=== PATIENT | female | born 1970 | race Caucasian/White ===

== ENCOUNTER 2018-10-12 20:53 | Observation (INO) | payer BC ==
[2018-10-12 21:50] LABS: ABSOLUTE EOSINOPHILS # (AUTO) 0.1 10^3/uL (0.0-0.6); ABSOLUTE LYMPHOCYTES (AUTO) 1.8 10^3/uL (0.5-4.7); ABSOLUTE MONOCYTES (AUTO) 0.6 10^3/uL (0.1-1.4); ABSOLUTE NEUT (AUTO) 7.7 10^3/uL (1.7-8.2); BASOPHILS % (AUTO) 0.3 % (0-2); EOSINOPHILS % (AUTO) 0.5 % (0-6); HEMATOCRIT 41.5 % (36.0-47.0); HEMOGLOBIN 14.4 g/dL (12.0-15.5); LYMPHOCYTES % (AUTO) 17.4 % (13-45); MEAN CORPUSCULAR HEMOGLOBIN 33.8 pg (27.0-33.4); MEAN CORPUSCULAR HGB CONC 34.6 g/dL (32.0-36.0); MEAN CORPUSCULAR VOLUME 98 fl (80-97); MONOCYTES % (AUTO) 6.2 % (3-13); PLATELET COUNT 274 10^3/uL (150-450); RED BLOOD COUNT 4.24 10^6/uL (3.72-5.28); RED CELL DISTRIBUTION WIDTH 14.6 % (11.5-14.0); SEGMENTED NEUTROPHILS % (AUTO) 75.6 % (42-78); TOTAL CELLS COUNTED % (AUTO) 100 %; WHITE BLOOD COUNT 10.2 10^3/uL (4.0-10.5)
[2018-10-12 21:51] LABS: APPEARANCE,URINE CLEAR; BILIRUBIN,URINE NEGATIVE (NEGATIVE); COLOR,URINE YELLOW; GLUCOSE, URINE NEGATIVE (NEGATIVE); KETONES,URINE TRACE mg/dL (NEGATIVE); LEUKOCYTE ESTERASE,URINE NEGATIVE (NEGATIVE); NITRITE,URINE NEGATIVE (NEGATIVE); PROTEIN,URINE NEGATIVE (NEGATIVE); URINE SPECIFIC GRAVITY 1.009; UROBILINOGEN,URINE NEGATIVE mg/dL (<2.0)
[2018-10-12 22:06] LABS: ALANINE AMINOTRANSFERASE 25 U/L (9-52); ALBUMIN 4.3 g/dL (3.5-5.0); ALKALINE PHOSPHATASE 108 U/L (38-126); ANION GAP 7 (5-19); ASPARTATE AMINO TRANSFERASE 19 U/L (14-36); BILIRUBIN,DIRECT 0.1 mg/dL (0.0-0.4); BILIRUBIN,TOTAL 0.5 mg/dL (0.2-1.3); BLOOD UREA NITROGEN 10 mg/dL (7-20); CALCIUM 9.5 mg/dL (8.4-10.2); CARBON DIOXIDE 27 mmol/L (22-30); CHLORIDE 107 mmol/L (98-107); GLUCOSE 89 mg/dL (75-110); POTASSIUM 4.3 mmol/L (3.6-5.0); SODIUM 140.7 mmol/L (137-145); TOTAL PROTEIN 7.1 g/dL (6.3-8.2)
[2018-10-12] MEDS ORDERED: KETOROLAC TROMETHAMINE INJ/PF 30 MG/1 ML SDV IV ONE (23:23)
[2018-10-12] MEDS ORDERED: MORPHINE SULFATE 10 MG/ML INJ IV PRN (23:23)
[2018-10-12] MEDS ORDERED: RINGERS SOLUTION,LACTATED 1,000 ML IV ONE (23:24)
--- NOTE | 2018-10-12 23:26 | ER Document Report ---
ED General - General Chief Complaint: Abdominal Pain Stated Complaint: FLANK PAIN Time Seen by Provider: 10/12/18 21:14 Notes: Patient is a 47-year-old female without chronic medical problems, no prior abdominal surgical history, presents with 36 hours of right lower quadrant abdominal pain. States the pains are gradually, has gotten progressively worse since onset. Describes the pain as a dull, throbbing, aching pain to the right lower abdomen. Worsened by movement, coughing or touching the area. Nothing improves the pain. Notes associated nausea but no vomiting or diarrhea. No fever or constitutional symptoms. Has not seen her general physician regarding today's concerns. Denies any history of similar symptoms in the past. TRAVEL OUTSIDE OF THE [place] IN LAST 30 DAYS: No - Related Data Allergies/Adverse Reactions: Iodinated Contrast- Oral and IV Dye Adverse Reaction (Severe, Verified 10/12/18 23:38) Anaphylaxis Past Medical History - General Information source: Patient - Social History Smoking Status: Current Every Day Smoker Frequency of alcohol use: Occasional Drug Abuse: None Lives with: Family Family History: Reviewed & Not Pertinent Patient has suicidal ideation: No Patient has homicidal ideation: No Renal/ Medical History: Denies: Hx Peritoneal Dialysis Past Surgical History: Reports: Hx Section - x2 Review of Systems - Review of Systems Notes: Constitutional: Negative for fever. HENT: Negative for sore throat. Eyes: Negative for visual changes. Cardiovascular: Negative for chest pain. Respiratory: Negative for shortness of breath. Gastrointestinal: Positive for right lower abdominal pain Genitourinary: Negative for dysuria. Musculoskeletal: Negative for back pain. Skin: Negative for rash. Neurological: Negative for headaches, weakness or numbness. 10 point ROS negative except as marked above and in HPI. Physical Exam - Vital signs Vitals: Temp Pulse Resp BP Pulse Ox 98.0 F 90 16 128/82 H 99 10/12/18 20:57 10/12/18 20:57 10/12/18 20:57 10/12/18 20:57 10/12/18 20:57 Interpretation: Normal Notes: PHYSICAL EXAMINATION: GENERAL: Appears moderately uncomfortable but in no acute distress HEAD: Atraumatic, normocephalic. EYES: Pupils equal round and reactive to light, extraocular movements intact, sclera anicteric, conjunctiva are normal. ENT: nares patent, oropharynx clear without exudates. Moist mucous membranes. NECK: Normal range of motion, supple without lymphadenopathy LUNGS: Breath sounds clear to auscultation bilaterally and equal. No wheezes rales or rhonchi. HEART: Regular rate and rhythm without murmurs ABDOMEN: Soft, focal tenderness to the right lower quadrant with associated rebound no guarding. Otherwise no localized abdominal tenderness. Normoactive bowel sounds. EXTREMITIES: Normal range of motion, no pitting or edema. No cyanosis. NEUROLOGICAL: No focal neurological deficits. Moves all extremities spontaneously and on command. PSYCH: Normal mood, normal affect. SKIN: Warm, Dry, normal turgor, no rashes or lesions noted. Course - Re-evaluation Re-evalutation: 10/12/18 23:25 Patient presents with right lower quadrant abdominal pain has become progressively worse over the past 36 hours. Has focal tenderness right lower quadrant with rebound although no guarding. Labs unremarkable. Patient is unable to receive oral or IV contrast dye second. Primary concern is for possible acute appendicitis. Will proceed with CT down pelvis to evaluate although this has the high potential being limited exam given patient's relatively low BMI and inability to receive contrast. 10/13/18 01:08 CT the abdomen pelvis notes right-sided diverticulitis although does not comment on appendix. I did contact the surgeon personal support worker Dr. Casanova who evaluated the patient, requests repeat CT with oral barium. This is pending. 10/13/18 03:28 CT with oral contrast does confirm normal appendix with right-sided diverticulitis. I discussed with Dr. Casanova, recommends admission. I have discussed Dr. Reid who has accepted the patient for admission. IV ciprofloxacin and metronidazole have been initiated. - Vital Signs Vital signs: Temp Pulse Resp BP Pulse Ox 98.0 F 92 18 128/82 H 99 10/13/18 00:56 10/13/18 00:56 10/13/18 00:56 10/12/18 20:57 10/13/18 00:56 - Laboratory Result Diagrams: 10/12/18 21:30 10/12/18 21:30 Laboratory results interpreted by me: 10/12/18 10/12/18 21:30 21:30 MCV 98 H MCH 33.8 H RDW 14.6 H Urine Ketones TRACE H - Diagnostic Test Radiology reviewed: Reports reviewed Discharge - Discharge Clinical Impression: Diverticulitis, Right sided abdominal pain Condition: Fair Disposition: ADMITTED OBSERVATION Admitting Provider: Hospitalist Unit Admitted: Medical Floor
--- NOTE | 2018-10-12 23:53 | RADIOLOGY REPORT (SQ) ---
EXAM DESCRIPTION: CT ABDOMEN PELVIS WITHOUT IV CONTRAST COMPLETED DATE/TME: 10/12/2018 23:23 CLINICAL HISTORY: 47 years, Female, rlq pain, eval appy, cant get contrast This exam was performed according to our departmental dose-optimization program which includes automated exposure control, adjustment of the mA and/or kVp according to patient size and/or use of iterative reconstruction technique where applicable. FINDINGS: Visualized lung bases are within normal limits. Liver, spleen, pancreas, gallbladder, adrenal glands and kidneys are within normal limits. No hydronephrosis or biliary dilatation. There is no renal, ureteral or bladder calculus. No dilated loops of bowel to suggest obstruction. Mild diffuse colonic diverticulosis. Mild inflammation involving the right colon suspicious for diverticulitis. No free fluid or free air. The bladder is unremarkable. The gynecologic organs are unremarkable. No abdominal or pelvic lymphadenopathy. Abdominal aorta mildly calcified without aneurysm. IMPRESSION: Mild right-sided colonic diverticulitis suspected. No abscess. No free air.
--- NOTE | 2018-10-13 00:42 | PDOC CONSULTATION ---
Consultation Consult Date: 10/13/18 Consult reason:: abdominal pains History of Present Illness History of Present Illness: JOSE MARIA SHAH is a 47 year old female who suddenly c/o RLQ pains noon time 10/12/18. Pains initially on and off but persistent as soon as she got into ED [facility]. No nausea/vomiting, fever nor chills, diarrhea nor constipation. No dysuria. no vaginal discharge. Still have her menses. C/O right lower back pains about a week ago. Diagnosed herself with sciatica past 2 years. Past Medical History Endocrine Medical History: Reports: Hypothyroidism - takes synthroid for past 13 years. Past Surgical History Past Surgical History: Reports: Section - x2 Social History Smoking Status: Current Every Day Smoker Family History Parental Family History Reviewed: Yes Children Family History Reviewed: No Sibling(s) Family History Reviewed.: No Medication/Allergy Allergies/Adverse Reactions: Iodinated Contrast- Oral and IV Dye Adverse Reaction (Severe, Verified 10/12/18 23:38) Anaphylaxis Review of Systems Constitutional: PRESENT: as per HPI Cardiovascular: PRESENT: other - no chest pains/cough Gastrointestinal: PRESENT: abdominal pain Genitourinary: PRESENT: other - no dysuria Musculoskeletal: PRESENT: back pain Physical Exam Vital Signs: Temp Pulse Resp BP Pulse Ox 98.0 F 90 16 128/82 H 99 10/12/18 20:57 10/12/18 20:57 10/12/18 20:57 10/12/18 20:57 10/12/18 20:57 Intake & Output 10/11/18 10/12/18 10/13/18 06:59 06:59 06:59 Weight 55.3 kg General appearance: PRESENT: mild distress Head exam: PRESENT: atraumatic Eye exam: PRESENT: conjunctiva pink Mouth exam: PRESENT: moist Neck exam: PRESENT: full ROM Respiratory exam: PRESENT: clear to auscultation marlon Cardiovascular exam: PRESENT: RRR Pulses: PRESENT: normal radial pulses Vascular exam: PRESENT: normal capillary refill GI/Abdominal exam: PRESENT: soft, tenderness - RLQ with rebound Rectal exam: PRESENT: deferred Extremities exam: PRESENT: full ROM Musculoskeletal exam: PRESENT: ambulatory Neurological exam: PRESENT: alert, oriented to person, oriented to place, oriented to time, oriented to situation Psychiatric exam: PRESENT: appropriate affect Skin exam: PRESENT: normal color, warm Results Laboratory Results: 10/12/18 21:30 10/12/18 21:30 10/12/18 10/12/18 10/12/18 21:30 21:30 21:30 WBC 10.2 RBC 4.24 Hgb 14.4 Hct 41.5 MCV 98 H MCH 33.8 H MCHC 34.6 RDW 14.6 H Plt Count 274 Seg Neutrophils % 75.6 Lymphocytes % 17.4 Monocytes % 6.2 Eosinophils % 0.5 Basophils % 0.3 Absolute Neutrophils 7.7 Absolute Lymphocytes 1.8 Absolute Monocytes 0.6 Absolute Eosinophils 0.1 Absolute Basophils 0.0 Sodium 140.7 Potassium 4.3 Chloride 107 Carbon Dioxide 27 Anion Gap 7 BUN 10 Creatinine 0.81 Est GFR ( Amer) > 60 Est GFR (Non-Af Amer) > 60 Glucose 89 Calcium 9.5 Total Bilirubin 0.5 AST 19 ALT 25 Alkaline Phosphatase 108 Total Protein 7.1 Albumin 4.3 Serum HCG, Qual NEGATIVE Urine Color Urine Appearance Urine pH Ur Specific [place] Urine Protein Urine Glucose (UA) Urine Ketones Urine Blood Urine Nitrite Ur Leukocyte Esterase Urine WBC (Auto) Urine RBC (Auto) 10/12/18 21:30 WBC RBC Hgb Hct MCV MCH MCHC RDW Plt Count Seg Neutrophils % Lymphocytes % Monocytes % Eosinophils % Basophils % Absolute Neutrophils Absolute Lymphocytes Absolute Monocytes Absolute Eosinophils Absolute Basophils Sodium Potassium Chloride Carbon Dioxide Anion Gap BUN Creatinine Est GFR ( Amer) Est GFR (Non-Af Amer) Glucose Calcium Total Bilirubin AST ALT Alkaline Phosphatase Total Protein Albumin Serum HCG, Qual Urine Color YELLOW Urine Appearance CLEAR Urine pH 6.0 Ur Specific [place] 1.009 Urine Protein NEGATIVE Urine Glucose (UA) NEGATIVE Urine Ketones TRACE H Urine Blood NEGATIVE Urine Nitrite NEGATIVE Ur Leukocyte Esterase NEGATIVE Urine WBC (Auto) 1 Urine RBC (Auto) 0 Impressions: Abdomen/Pelvis CT 10/12/18 23:23 IMPRESSION: Mild right-sided colonic diverticulitis suspected. No abscess. No free air. Assessment & Plan - Diagnosis (1) Right sided colitis Is this a current diagnosis for this admission?: Yes - Time Time Spent: 30 to 50 Minutes - Plan Summary Plan Summary: Repeat CT scan with po contrast to better visualize appendix Hold antibiotics tonight OK to give pain medicine Will follow post repeat CT scan
--- NOTE | 2018-10-13 02:43 | RADIOLOGY REPORT (SQ) ---
EXAM DESCRIPTION: CT ABDOMEN PELVIS WITHOUT IV CONTRAST COMPLETED DATE/TME: 10/13/2018 00:00 CLINICAL HISTORY: 47 years Female, RLQ PAIN, EVAL APPY Comparison: One day prior. Technique: No IV contrast. Oral contrast only. Coronal and sagittal reformat. This exam was performed according to our departmental dose-optimization program, which includes automated exposure control, adjustment of the mA and/or kV according to patient size and/or use of iterative reconstruction technique.[facility]: Dose Right [facility]: CareDose [facility]: Dose Right [facility]: Teradose 4D [facility]: Moogsoft LIMITATIONS: None Findings: Mild fat inflammation associated with right colonic diverticulosis. No drainable fluid collection. No abscess. No ascites. Normal appendix. No pneumoperitoneum. No bowel obstruction. No hydronephrosis or hydroureter. No renal/ureteral stone. No evidence of abdominal aortic aneurysm. Unenhanced lower thorax, abdominopelvic structures, and musculoskeleton appear otherwise grossly unremarkable. Impression: No significant change. Mild diverticulitis. Normal appendix.
[2018-10-13] MEDS ORDERED: METRONIDAZOLE 500 MG/NS RTU 500 MG/100 ML RTUPB IV ONE (02:49)
[2018-10-13] MEDS ORDERED: CIPROFLOXACIN 400 MG/D5W RTU 400 MG/200 ML RTUPB IV ONE (02:51)
[2018-10-13] MEDS ORDERED: IPRATROPIUM/ALBUTEROL 0.5-2.5 MG/3 ML AMPUL NEB PRN (02:54)
[2018-10-13] MEDS ORDERED: MAG HYDROX/AL HYDROX/SIMETH SUSP 30 ML UDCUP PO PRN (02:54)
[2018-10-13] MEDS ORDERED: ONDANSETRON HCL INJ/PF 4 MG/2 ML SDV IV PRN (02:54)
[2018-10-13] MEDS ORDERED: ACETAMINOPHEN 325 MG TABLET PO PRN (02:56)
[2018-10-13] MEDS ORDERED: MORPHINE SULFATE 10 MG/ML INJ IV PRN (02:56)
[2018-10-13] MEDS ORDERED: KETOROLAC TROMETHAMINE INJ/PF 30 MG/1 ML SDV IV PRN (02:56)
[2018-10-13] MEDS: NORMAL SALINE 1000 ML 1,000 ML IV PRN ×4 (03:25→21:10)
--- NOTE | 2018-10-13 05:33 | PDOC H&P ---
History of Present Illness Admission Date/PCP: 10/13/18 03:28 Patient complains of: Abdominal pain History of Present Illness: JOSE MARIA SHAH is a 47 year old female without significant past medical history who presents to the emergency room with 36 hours of intermittent 4 out of 5 right lower quadrant abdominal pain described as burning and poking worsened by deep breath. She denies nausea vomiting or diarrhea. She denies previous episode. In the emergency room she is found to have unremarkable labs but CT suggests cecal diverticulitis without abscess. She started on empiric antibiotics and referred to the hospitalist for admission. She denies recent antibiotic use and otherwise has felt well. Past Medical History Medical History: None Endocrine Medical History: Reports: Hypothyroidism - takes synthroid for past 13 years. Past Surgical History Past Surgical History: Reports: Section - x2 Social History Lives with: Family Smoking Status: Current Every Day Smoker Cigarettes Packs Per Day: 0.5 Frequency of Alcohol Use: Rare - Advance Directive Resuscitation Status: Full Code Family History Family History: Hypertension Parental Family History Reviewed: Yes Children Family History Reviewed: Yes Sibling(s) Family History Reviewed.: Yes Medication/Allergy Allergies/Adverse Reactions: Iodinated Contrast- Oral and IV Dye Adverse Reaction (Severe, Verified 10/12/18 23:38) Anaphylaxis Review of Systems Constitutional: ABSENT: chills, fever(s), headache(s), weight gain, weight loss Eyes: ABSENT: visual disturbances Ears: ABSENT: hearing changes Cardiovascular: ABSENT: chest pain, dyspnea on exertion, edema, orthropnea, palpitations Respiratory: ABSENT: cough, hemoptysis Gastrointestinal: ABSENT: abdominal pain, constipation, diarrhea, hematemesis, hematochezia, nausea, vomiting Genitourinary: ABSENT: dysuria, hematuria Musculoskeletal: ABSENT: joint swelling Integumentary: ABSENT: rash, wounds Neurological: ABSENT: abnormal gait, abnormal speech, confusion, dizziness, focal weakness, syncope Psychiatric: ABSENT: anxiety, depression, homidical ideation, suicidal ideation Endocrine: ABSENT: cold intolerance, heat intolerance, polydipsia, polyuria Hematologic/Lymphatic: ABSENT: easy bleeding, easy bruising Physical Exam Vital Signs: Temp Pulse Resp BP Pulse Ox 98.6 F 74 15 113/76 100 10/13/18 03:35 10/13/18 03:35 10/13/18 03:35 10/13/18 03:35 10/13/18 03:35 Intake & Output 10/11/18 10/12/18 10/13/18 11:59 11:59 11:59 Intake Total 1300 Balance 1300 Weight 55.3 kg General appearance: PRESENT: cooperative, mild distress, well-developed, well- nourished Head exam: PRESENT: atraumatic, normocephalic Eye exam: PRESENT: conjunctiva pink, EOMI, PERRLA. ABSENT: scleral icterus Ear exam: PRESENT: normal external ear exam Mouth exam: PRESENT: moist, tongue midline Neck exam: ABSENT: carotid bruit, JVD, lymphadenopathy, thyromegaly Respiratory exam: PRESENT: clear to auscultation marlon. ABSENT: rales, rhonchi, wheezes Cardiovascular exam: PRESENT: RRR. ABSENT: diastolic murmur, rubs, systolic murmur Pulses: PRESENT: normal dorsalis pedis pul Vascular exam: PRESENT: normal capillary refill GI/Abdominal exam: PRESENT: hyperactive bowel sounds, soft, tenderness - Right lower quadrant. ABSENT: distended, guarding, mass, organolmegaly, rebound Rectal exam: PRESENT: deferred Extremities exam: PRESENT: full ROM. ABSENT: calf tenderness, clubbing, pedal edema Neurological exam: PRESENT: alert, awake, oriented to person, oriented to place, oriented to time, oriented to situation, CN II-XII grossly intact. ABSENT: motor sensory deficit Psychiatric exam: PRESENT: appropriate affect, normal mood. ABSENT: homicidal ideation, suicidal ideation Skin exam: PRESENT: dry, intact, warm. ABSENT: cyanosis, rash Results Laboratory Results: 10/12/18 21:30 10/12/18 21:30 10/12/18 10/12/18 10/12/18 21:30 21:30 21:30 WBC 10.2 RBC 4.24 Hgb 14.4 Hct 41.5 MCV 98 H MCH 33.8 H MCHC 34.6 RDW 14.6 H Plt Count 274 Seg Neutrophils % 75.6 Lymphocytes % 17.4 Monocytes % 6.2 Eosinophils % 0.5 Basophils % 0.3 Absolute Neutrophils 7.7 Absolute Lymphocytes 1.8 Absolute Monocytes 0.6 Absolute Eosinophils 0.1 Absolute Basophils 0.0 Sodium 140.7 Potassium 4.3 Chloride 107 Carbon Dioxide 27 Anion Gap 7 BUN 10 Creatinine 0.81 Est GFR ( Amer) > 60 Est GFR (Non-Af Amer) > 60 Glucose 89 Calcium 9.5 Total Bilirubin 0.5 AST 19 ALT 25 Alkaline Phosphatase 108 Total Protein 7.1 Albumin 4.3 Serum HCG, Qual NEGATIVE Urine Color Urine Appearance Urine pH Ur Specific [place] Urine Protein Urine Glucose (UA) Urine Ketones Urine Blood Urine Nitrite Ur Leukocyte Esterase Urine WBC (Auto) Urine RBC (Auto) 10/12/18 21:30 WBC RBC Hgb Hct MCV MCH MCHC RDW Plt Count Seg Neutrophils % Lymphocytes % Monocytes % Eosinophils % Basophils % Absolute Neutrophils Absolute Lymphocytes Absolute Monocytes Absolute Eosinophils Absolute Basophils Sodium Potassium Chloride Carbon Dioxide Anion Gap BUN Creatinine Est GFR ( Amer) Est GFR (Non-Af Amer) Glucose Calcium Total Bilirubin AST ALT Alkaline Phosphatase Total Protein Albumin Serum HCG, Qual Urine Color YELLOW Urine Appearance CLEAR Urine pH 6.0 Ur Specific [place] 1.009 Urine Protein NEGATIVE Urine Glucose (UA) NEGATIVE Urine Ketones TRACE H Urine Blood NEGATIVE Urine Nitrite NEGATIVE Ur Leukocyte Esterase NEGATIVE Urine WBC (Auto) 1 Urine RBC (Auto) 0 Assessment & Plan - Diagnosis (1) Diverticulitis Is this a current diagnosis for this admission?: Yes Plan: Cecal diverticulitis without abscess or leukocytosis. She is placed on symptomatic management, empiric antibiotics. Follow-up CBC, blood culture and surgical consult (2) Right sided abdominal pain Is this a current diagnosis for this admission?: Yes Plan: Toradol and morphine as needed (3) Tobacco dependency Is this a current diagnosis for this admission?: Yes Plan: Tobacco Dependence patient received tobacco cessation counseling and offered nicotine replacement options - Time Time Spent: 30 to 50 Minutes - Inpatient Certification Medical Necessity: Need Close Monitoring Due to Risk of Patient Decompensation
[2018-10-13] MEDS: HEPARIN SOD (PORCINE) 5,000 UNIT/ML 1 ML SYRINGE SUBCUT SCH ×3 (06:15→22:00)
[2018-10-13] MEDS: METRONIDAZOLE 500 MG/NS RTU 500 MG/100 ML RTUPB IV SCH ×3 (09:47→21:09)
--- NOTE | 2018-10-13 10:16 | PDOC PROGRESS REPORT ---
Subjective Progress Note for:: 10/13/18 Subjective:: Feels better, wants to start a diet. Essentially no pain medicine; no fever. Reason For Visit: DIVERTICULITIS Physical Exam Vital Signs: Temp Pulse Resp BP Pulse Ox 98.0 F 61 18 106/67 99 10/13/18 08:09 10/13/18 09:09 10/13/18 09:09 10/13/18 08:09 10/13/18 09:09 Intake & Output 10/12/18 10/13/18 10/14/18 06:59 06:59 06:59 Intake Total 2012 Balance 2012 Weight 55.3 kg General appearance: PRESENT: no acute distress GI/Abdominal exam: PRESENT: other - Minimal tenderness right lower quadrant. No peritoneal signs no rigidity. Results Laboratory Results: 10/12/18 21:30 10/12/18 21:30 10/12/18 10/12/18 10/12/18 21:30 21:30 21:30 WBC 10.2 RBC 4.24 Hgb 14.4 Hct 41.5 MCV 98 H MCH 33.8 H MCHC 34.6 RDW 14.6 H Plt Count 274 Seg Neutrophils % 75.6 Lymphocytes % 17.4 Monocytes % 6.2 Eosinophils % 0.5 Basophils % 0.3 Absolute Neutrophils 7.7 Absolute Lymphocytes 1.8 Absolute Monocytes 0.6 Absolute Eosinophils 0.1 Absolute Basophils 0.0 Sodium 140.7 Potassium 4.3 Chloride 107 Carbon Dioxide 27 Anion Gap 7 BUN 10 Creatinine 0.81 Est GFR ( Amer) > 60 Est GFR (Non-Af Amer) > 60 Glucose 89 Calcium 9.5 Total Bilirubin 0.5 AST 19 ALT 25 Alkaline Phosphatase 108 Total Protein 7.1 Albumin 4.3 Serum HCG, Qual NEGATIVE Urine Color Urine Appearance Urine pH Ur Specific [place] Urine Protein Urine Glucose (UA) Urine Ketones Urine Blood Urine Nitrite Ur Leukocyte Esterase Urine WBC (Auto) Urine RBC (Auto) 10/12/18 21:30 WBC RBC Hgb Hct MCV MCH MCHC RDW Plt Count Seg Neutrophils % Lymphocytes % Monocytes % Eosinophils % Basophils % Absolute Neutrophils Absolute Lymphocytes Absolute Monocytes Absolute Eosinophils Absolute Basophils Sodium Potassium Chloride Carbon Dioxide Anion Gap BUN Creatinine Est GFR ( Amer) Est GFR (Non-Af Amer) Glucose Calcium Total Bilirubin AST ALT Alkaline Phosphatase Total Protein Albumin Serum HCG, Qual Urine Color YELLOW Urine Appearance CLEAR Urine pH 6.0 Ur Specific [place] 1.009 Urine Protein NEGATIVE Urine Glucose (UA) NEGATIVE Urine Ketones TRACE H Urine Blood NEGATIVE Urine Nitrite NEGATIVE Ur Leukocyte Esterase NEGATIVE Urine WBC (Auto) 1 Urine RBC (Auto) 0 Assessment & Plan - Diagnosis (1) Right sided abdominal pain Is this a current diagnosis for this admission?: Yes Plan: Impression: Clinically improved; minimal findings on CT scan which I reviewed this morning. The appendix is illuminated with oral contrast, so the likelihood of appendicitis is extremely low. The diverticuli are limited to 1 or 2 involving the cecum. Amount of pericecal inflammation is minimal; no fluid or phlegmon Recommendations: 1. Advance diet as tolerated 2. Given the minimal findings on CT scan, normal white count and absence of fever, I would be inclined to limit since duration of p.o. antibiotics. 3. Surgery will sign off at this time. Reconsult if necessary.
--- NOTE | 2018-10-13 15:21 | Progress Note ---
Provider Note Provider Note: patient admitted after midnight. please see H&P for full A&P spoke with patient at bedside. 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 advanced her diet to clears now. she wants to go home but still having pain. discussed about staying another 24-48hours and see how she does with her pain. discussed about causes of her pain- diverticulitis vs ?ovarian cysts. she did have CT abdo on admission - ONLY ORAL contrast- shows mild diverticulitis. i discussed about getting a TVUS to evaluate her ovaries- she agreeable. if TVUS shows neg findings and her pain persists- we can consider repeat CT abdo WITH IV contrast if her renal functions are appropriate. if her pain improves and she's able to tolerate a soft diet then she can possibly be discharged in AM c/w Cipro/flagyl for now until we have more information.
[2018-10-13] MEDS: CIPROFLOXACIN 400 MG/D5W RTU 400 MG/200 ML RTUPB IV SCH (17:33)
[2018-10-14] MEDS: METRONIDAZOLE 500 MG/NS RTU 500 MG/100 ML RTUPB IV SCH ×2 (03:24→08:38)
[2018-10-14] MEDS: CIPROFLOXACIN 400 MG/D5W RTU 400 MG/200 ML RTUPB IV SCH (05:24)
[2018-10-14 06:48] LABS: ABSOLUTE BASOPHILS # (AUTO) 0.1 10^3/uL (0.0-0.2); ABSOLUTE EOSINOPHILS # (AUTO) 0.1 10^3/uL (0.0-0.6); ABSOLUTE LYMPHOCYTES (AUTO) 1.9 10^3/uL (0.5-4.7); ABSOLUTE MONOCYTES (AUTO) 0.5 10^3/uL (0.1-1.4); ABSOLUTE NEUT (AUTO) 5.1 10^3/uL (1.7-8.2); BASOPHILS % (AUTO) 0.7 % (0-2); EOSINOPHILS % (AUTO) 0.8 % (0-6); HEMATOCRIT 34.1 % (36.0-47.0); LYMPHOCYTES % (AUTO) 25.6 % (13-45); MEAN CORPUSCULAR HEMOGLOBIN 33.5 pg (27.0-33.4); MEAN CORPUSCULAR HGB CONC 34.8 g/dL (32.0-36.0); MEAN CORPUSCULAR VOLUME 96 fl (80-97); MONOCYTES % (AUTO) 6.4 % (3-13); PLATELET COUNT 198 10^3/uL (150-450); RED BLOOD COUNT 3.55 10^6/uL (3.72-5.28); RED CELL DISTRIBUTION WIDTH 14.3 % (11.5-14.0); SEGMENTED NEUTROPHILS % (AUTO) 66.5 % (42-78); TOTAL CELLS COUNTED % (AUTO) 100 %; WHITE BLOOD COUNT 7.6 10^3/uL (4.0-10.5)
[2018-10-14 06:49] LABS: HEMOGLOBIN 11.9 g/dL (12.0-15.5)
[2018-10-14 07:12] LABS: ANION GAP 9 (5-19); BLOOD UREA NITROGEN 4 mg/dL (7-20); CALCIUM 8.4 mg/dL (8.4-10.2); CARBON DIOXIDE 22 mmol/L (22-30); CHLORIDE 109 mmol/L (98-107); GLUCOSE 115 mg/dL (75-110); SODIUM 139.8 mmol/L (137-145)
[2018-10-14] MEDS: HEPARIN SOD (PORCINE) 5,000 UNIT/ML 1 ML SYRINGE SUBCUT SCH (08:23)
--- NOTE | 2018-10-14 09:35 | Physician Advisory Note ---
Physician Advisor ProgressNote .: Pursuant to the plan for [facility], I have reviewed the medical record for this patient. Physician Advisor Statement: Status: BCNC pt w/PMH tobacco abuse only, in w/RLQ pain, cecal diverticulitis without excessive intra-abd inflammation, attg yesterday also concerned for potential of ov cyst. Improving w/in 24hrs w/IVF & abx, though still w/sufficient abd pain that attg recommended further eval w/US. Has been relatively low severity of illness/intensity of service. Approp'ly Obs. - If not able to go home today safely/acute new clinical issues that concern attg, please document explicitly. Thanks! CK
[2018-10-14 13:45] VITALS: BP 113/76
--- NOTE | 2018-10-14 17:09 | RADIOLOGY REPORT (SQ) ---
EXAM DESCRIPTION: U/S NON-OB PELVIS TV W/O DOP COMPLETED DATE/TIME: 10/14/2018 11:37 am REASON FOR STUDY: RIGHT LOWER Q PAIN COMPARISON: None. TECHNIQUE: Dynamic and static grayscale images acquired of the pelvis via transvaginal approach and recorded on PACS. Additional selected color Doppler and spectral images recorded. LIMITATIONS: None. FINDINGS: UTERUS: Contour normal. No mass. ENDOMETRIAL STRIPE: No focal or generalized thickening. No masses. CERVIX: No nabothian cysts. RIGHT OVARY AND DOPPLER: Normal size. 1.5 cm thick-walled hypoechoic lesion with internal echoes. N o worrisome masses. Normal arterial vascular flow without evidence for torsion. LEFT OVARY AND DOPPLER: Normal size. No worrisome masses. Normal arterial vascular flow without evide nce for torsion. FREE FLUID: None noted. OTHER: No other significant finding. MEASUREMENTS: UTERUS: 6.7 x 3.9 x 3.2 cm ENDOMETRIAL STRIPE: 4 mm RIGHT OVARY: 1.8 x 1.7 x 1.7 cm LEFT OVARY: 2.1 x 1.3 x 1.1 cm IMPRESSION: Hemorrhagic cyst right ovary. TECHNICAL DOCUMENTATION: JOB ID: [id number] [employer]- All Rights Reserved Rev-01/24 Reading location - IP/workstation name: [email or web address]
--- NOTE | 2018-10-14 21:05 | PDOC DISCHARGE SUMMARY ---
General - Admit/Disc Date/PCP Admission Date/Primary Care Provider: 10/13/18 03:28 Discharge Date: 10/14/18 - Discharge Diagnosis (1) Diverticulitis Is this a current diagnosis for this admission?: Yes Summary: The patient's CT scan exhibited inflammatory changes in the patient did improve with antibiotic therapy. She was tried on a clear liquid diet but only consumed part of the meal tray. This is not because she could not tolerate it but she did not want to drink the liquids seeing as she was quite hungry. I did explain to her that she should advance her diet very slowly. It seems that she should do well. The diverticulitis appeared to be mild. Her white blood cell count did improve with antibiotic therapy. I will continue metronidazole and ciprofloxacin for several more days after discharge. (2) Right sided abdominal pain Is this a current diagnosis for this admission?: Yes Summary: Abdominal pain has improved significantly. Abdominal pain could also be related to the hemorrhagic right ovarian cyst noted on transvaginal ultrasound. (3) Anemia Is this a current diagnosis for this admission?: Yes Summary: Patient's hemoglobin had decreased by the second day. It is hard to know how much of this is delusional look. I have asked that she follow-up with her primary care provider next week and repeat a CBC. It is unlikely that a hemorrhagic ovarian cyst would affect her serum hemoglobin. (4) Hemorrhagic cyst of right ovary Is this a current diagnosis for this admission?: Yes Summary: Noted on transvaginal ultrasound. Certainly could contribute to right lower quadrant pain. I will call the patient and provide results since the interpretation was not available at the time of discharge. - Additional Information Resuscitation Status: Full Code Discharge Diet: Other (Comments) Discharge Activity: Activity As Tolerated Prescriptions: Ciprofloxacin HCl [Cipro 500 mg Tablet] 500 mg PO BID 4 Days #8 tablet Metronidazole [Flagyl 500 mg Tablet] 500 mg PO TID #12 tablet Home Medications: Levothyroxine Sodium [Synthroid 0.075 mg Tablet] 0.075 mg PO Q6AM 10/13/18 Acetaminophen [Tylenol 325 mg Tablet] 650 mg PO Q6HP PRN tablet 10/14/18 Ciprofloxacin HCl [Cipro 500 mg Tablet] 500 mg PO BID 4 Days #8 tablet 10/14/18 Metronidazole [Flagyl 500 mg Tablet] 500 mg PO TID #12 tablet 10/14/18 History of Present Illness Patient complains of: Right lower quadrant abdominal pain History of Present Illness: JOSE MARIA SHAH is a 47 year old female who presented to the emergency department on October 13. She had been having greater than 24-hour intermittent pain (4 out of 5) in her right lower quadrant. The pain was worsened by deep breathing. It was described as burning and poking. She denied nausea, vomiting or diarrhea. CT scan performed in the emergency department revealed inflammatory changes near the cecum consistent with cecal diverticulitis. The patient was admitted for therapy. Hospital Course Hospital Course: The patient had an unremarkable hospital course. With the addition of antibiotics, IV fluids and analgesia her pain improved slowly. She was able to tolerate clear liquids this morning. After discussion it was decided that the patient was safe to discharged home. I have asked that she follow-up with her primary care provider next week. She should obtain a repeat CBC and check her anemia. I will also call and provide the information obtained by the transvaginal ultrasound today. Physical Exam Vital Signs: Temp Pulse Resp BP Pulse Ox 98.1 F 70 15 113/76 98 10/14/18 13:40 10/14/18 13:40 10/14/18 13:40 10/14/18 13:40 10/14/18 13:40 Intake & Output 10/13/18 10/14/18 10/15/18 06:59 06:59 06:59 Intake Total 2012 4560 300 Output Total 1604 Balance 2012 2956 300 Weight 55.3 kg 55.2 kg General appearance: PRESENT: no acute distress, well-developed Head exam: PRESENT: atraumatic, normocephalic Eye exam: PRESENT: conjunctiva pink. ABSENT: scleral icterus Mouth exam: PRESENT: moist Respiratory exam: PRESENT: clear to auscultation marlon, symmetrical, unlabored. ABSENT: rales, rhonchi, wheezes Cardiovascular exam: PRESENT: RRR, +S1, +S2 GI/Abdominal exam: PRESENT: normal bowel sounds, soft, tenderness - Focal tenderness right lower quadrant. No masses appreciated. Rectal exam: PRESENT: deferred Extremities exam: ABSENT: pedal edema Musculoskeletal exam: PRESENT: normal inspection Neurological exam: PRESENT: alert, awake, oriented to person, oriented to place, oriented to time, oriented to situation, CN II-XII grossly intact Psychiatric exam: PRESENT: appropriate affect, normal mood. ABSENT: agitated, anxious Focused psych exam: ABSENT: restlessness Skin exam: PRESENT: dry, warm. ABSENT: rash Results Laboratory Results: 10/14/18 06:28 10/14/18 06:28 10/14/18 10/14/18 06:28 06:28 WBC 7.6 RBC 3.55 L Hgb 11.9 L D Hct 34.1 L MCV 96 MCH 33.5 H MCHC 34.8 RDW 14.3 H Plt Count 198 Seg Neutrophils % 66.5 Lymphocytes % 25.6 Monocytes % 6.4 Eosinophils % 0.8 Basophils % 0.7 Absolute Neutrophils 5.1 Absolute Lymphocytes 1.9 Absolute Monocytes 0.5 Absolute Eosinophils 0.1 Absolute Basophils 0.1 Sodium 139.8 Potassium 4.0 Chloride 109 H Carbon Dioxide 22 Anion Gap 9 BUN 4 L Creatinine 0.73 Est GFR ( Amer) > 60 Est GFR (Non-Af Amer) > 60 Glucose 115 H Calcium 8.4 Impressions: Transvaginal US 10/14/18 00:00 IMPRESSION: Hemorrhagic cyst right ovary. Qualifiers - * PATIENT BEING DISCHARGED WITH ANY OF THE FOLLOWING DIAGNOSIS: No Plan Discharge Plan: Follow-up with primary care physician as noted above. May need referral to [facility]. Time Spent: Greater than 30 Minutes
== END 2018-10-14 14:05 | disposition home or self-care (01) ==
LOC: ER 20:53 → EH 10-13 03:28 → 2N 10-13 05:15
PROVIDERS: ADMIT Internal Medicine; ATTEND Internal Medicine
DX: K57.92 Diverticulitis of intestine, part unspecified, without perforation or abscess without bleeding (principal); R10.31 Right lower quadrant pain; N83.201 Unspecified ovarian cyst, right side; E03.9 Hypothyroidism, unspecified; F17.210 Nicotine dependence, cigarettes, uncomplicated; K57.32 Diverticulitis of large intestine without perforation or abscess without bleeding; Z91.041 Radiographic dye allergy status
CPT/HCPCS: 99285; 36415 ×3; 87040; 84703; 85025 ×2; 80048; 80053; 81001; 76830; 74176 ×2; J1885; J2270; J2405; J7030; J7120; J0744 ×2; G0378